=== PATIENT | female | born 2000 | race Caucasian/White ===

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

== ENCOUNTER 2019-08-09 19:04 | Emergency (ER) | payer OTHER ==
[~2019-08-09] VITALS: Ht 170.2 cm; Wt 72.6 kg
[~2019-08-09 19:04] MED LIST changes: +KETO10 PO; +Norco 5-325 Ta1 EACH PO; +Zofran4 MG PO
[2019-08-09] MEDS ORDERED: Robaxin-750750 MG PO (20:17)
[2019-08-09] MEDS ORDERED: IBUP800 PO (20:17)
== END 2019-08-09 20:31 | disposition home or self-care (01) ==
LOC: ER 19:04
DX: S46.912A Strain of unspecified muscle, fascia and tendon at shoulder and upper arm level, left arm, initial encounter (principal); S46.911A Strain of unspecified muscle, fascia and tendon at shoulder and upper arm level, right arm, initial encounter; M54.2 Cervicalgia; F17.210 Nicotine dependence, cigarettes, uncomplicated; V89.2XXA Person injured in unspecified motor-vehicle accident, traffic, initial encounter
CPT/HCPCS: 99283

== ENCOUNTER 2021-01-10 00:09 | Emergency (ER) | payer OTHER ==
[~2021-01-10] VITALS: Ht 170.2 cm; Wt 77.1 kg
[~2021-01-10 00:09] MED LIST changes: +Robaxin-750750 MG PO
[2021-01-10] MEDS ORDERED: ESCI10 PO (00:31)
[2021-01-10 02:06] LABS: SARS-Cov-2 (COVID-19) PCR, MMC POSITIVE (NEGATIVE)
[2021-01-10] MEDS ORDERED: ALBU90OI INH (02:17)
== END 2021-01-10 02:38 | disposition home or self-care (01) ==
LOC: ER 00:09
PROVIDERS: Emergency Medicine
DX: U07.1 COVID-19 (principal); F17.210 Nicotine dependence, cigarettes, uncomplicated; Z79.899 Other long term (current) drug therapy; Z87.442 Personal history of urinary calculi
CPT/HCPCS: 71045; 94640; 99283-25; A9270; U0004

== ENCOUNTER 2022-01-24 18:17 | Emergency (ER) | payer OTHER ==
[~2022-01-24] VITALS: Ht 170.2 cm; Wt 90.7 kg
[~2022-01-24 18:17] MED LIST changes: +ALBU90OI INH; +ESCI10 PO
[2022-01-24 19:41] LABS: Influenza A, PCR NEGATIVE (NEGATIVE); Influenza B, PCR NEGATIVE (NEGATIVE); Resp Syncytial Virus, PCR NEGATIVE (NEGATIVE)
[2022-01-24 19:51] LABS: SARS-Cov-2 (COVID-19) PCR, MMC POSITIVE (NEGATIVE)
== END 2022-01-24 20:40 | disposition home or self-care (01) ==
LOC: ER 18:17
PROVIDERS: Student in an Organized Health Care Education/Training Program
DX: U07.1 COVID-19 (principal); F17.210 Nicotine dependence, cigarettes, uncomplicated
CPT/HCPCS: 0241U

== ENCOUNTER 2022-07-20 05:06 | Inpatient (IN) | payer OTHER ==
[~2022-07-20] VITALS: Ht 170.2 cm; Wt 98.4 kg
[~2022-07-20 05:06] MED LIST changes: +PRENATAL TABLE1 EAC2
[2022-07-20 05:55] LABS: BASOPHILS ABSOLUTE AUTO 0.03 K/mm3 (0.00-0.23); BASOPHILS PERCENT AUTO 0 % (0-2); EOSINOPHILS ABSOLUTE AUTO 0.08 K/mm3 (0.00-0.68); EOSINOPHILS PERCENT AUTO 1 % (0-6); Hemoglobin 12.7 g/dL (11.5-16.0); IMMATURE GRAN ABSOLUTE AUTO 0.05 K/mm3 (0.00-0.10); IMMATURE GRAN PERCENT AUTO 1 % (0-1); LYMPHOCYTES PERCENT AUTO 19 % (21-46); MONOCYTES ABSOLUTE AUTO 0.58 K/mm3 (0.16-1.47); MONOCYTES PERCENT AUTO 6 % (4-13); Mean Corpuscular HGB 30.8 pg (26.0-34.0); Mean Corpuscular HGB Conc 33.4 g/dL (31.5-36.5); Mean Corpuscular Volume 92 fL (80-100); Mean Platelet Volume 9.4 fL (9.1-12.4); NEUTROPHILS PERCENT AUTO 73 % (41-73); Platelet Count 230 K/mm3 (150-400); RDW Coefficient Variation 13.3 % (11.7-14.2); RDW Standard Deviation 45.1 fL (35.1-46.3); Red Blood Cell Count 4.12 M/mm3 (3.80-5.20); White Blood Cell Count 9.14 K/mm3 (4.00-11.30)
--- NOTE | 2022-07-20 18:12 | NUR ---
PT HAD EPIDURAL PLACED BY DR PATEL, FIRST EPIDURAL DIDN'T RELIEVE PAIN, SECOND EPIDURAL WAS PLACED FIRST PLACEMENT TIMES 1528 LOCAL 1530 CATH PLACED 1531 TEST DOSE 1534 LOADING DOSE
[2022-07-20 19:53] LABS: PCO2 Cord - Arterial 62.8 mmHg (40-50); PO2 Cord - Arterial < 14 mmHg (16-20); pH Cord - Arterial 7.17 (7.28-7.35)
[2022-07-20 19:54] LABS: PCO2 Cord - Venous 53.2 mmHg (40-50); PO2 Cord - Venous 17.7 mmHg (28-32); pH Umbilical Cord - Venous 7.24 (7.26-7.35)
[2022-07-21 05:17] LABS: BASOPHILS ABSOLUTE AUTO 0.04 K/mm3 (0.00-0.23); BASOPHILS PERCENT AUTO 0 % (0-2); EOSINOPHILS ABSOLUTE AUTO 0.07 K/mm3 (0.00-0.68); EOSINOPHILS PERCENT AUTO 1 % (0-6); Hemoglobin 11.8 g/dL (11.5-16.0); IMMATURE GRAN ABSOLUTE AUTO 0.07 K/mm3 (0.00-0.10); IMMATURE GRAN PERCENT AUTO 1 % (0-1); LYMPHOCYTES ABSOLUTE AUTO 1.51 K/mm3 (0.84-5.20); LYMPHOCYTES PERCENT AUTO 11 % (21-46); MONOCYTES ABSOLUTE AUTO 0.98 K/mm3 (0.16-1.47); MONOCYTES PERCENT AUTO 7 % (4-13); Mean Corpuscular HGB 31.5 pg (26.0-34.0); Mean Corpuscular HGB Conc 34.7 g/dL (31.5-36.5); Mean Corpuscular Volume 91 fL (80-100); Mean Platelet Volume 9.1 fL (9.1-12.4); NEUTROPHILS ABSOLUTE AUTO 10.85 K/mm3 (1.96-9.15); NEUTROPHILS PERCENT AUTO 80 % (41-73); Platelet Count 183 K/mm3 (150-400); RDW Coefficient Variation 13.2 % (11.7-14.2); RDW Standard Deviation 43.7 fL (35.1-46.3); Red Blood Cell Count 3.75 M/mm3 (3.80-5.20); White Blood Cell Count 13.52 K/mm3 (4.00-11.30)
--- NOTE | 2022-07-21 11:52 | NUR ---
4 steri strips placed on incision as there was one spot in middle of incision that was slightly open and did not have steri strip over it. scant amt bloody drianage. otherwise intact, no pus or other drainage or smell.
[2022-07-22] MEDS ORDERED: Percocet 5-3251 EACH PO (13:52)
[2022-07-22] MEDS ORDERED: IBUP800 PO (13:52)
[2022-07-22] MEDS ORDERED: DOCU100 PO (13:53)
--- NOTE | 2022-07-22 17:40 | NUR ---
DISCHARGE TO HOME WITH NB
== END 2022-07-22 17:40 | disposition home or self-care (01) | DRG 788 ==
LOC: OBS 05:06 → BC 05:12
PROVIDERS: Obstetrics & Gynecology; ADMIT Advanced Practice Midwife
PROC: 10D00Z1 Extraction of Products of Conception, Low, Open Approach (ICD-10-PCS; principal; 2022-07-20 19:30)
DX: O34.211 Maternal care for low transverse scar from previous cesarean delivery (principal); Z37.0 Single live birth; O99.824 Streptococcus B carrier state complicating childbirth; O76 Abnormality in fetal heart rate and rhythm complicating labor and delivery; O34.03 Maternal care for unspecified congenital malformation of uterus, third trimester; Q51.810 Arcuate uterus; Z3A.39 39 weeks gestation of pregnancy; Z98.890 Other specified postprocedural states
CPT/HCPCS: 36415; 51702; 82803; 85025; 86850; 86900; 86901; 88307; A9270; J0290; J0690; J1885; J2001; J2370; J2405; J2590; J2765; J3010; J7120

== ENCOUNTER 2023-02-17 08:11 | Day surgery (SDC) | payer OTHER ==
[~2023-02-17] VITALS: Ht 170.2 cm; Wt 86.7 kg
[~2023-02-17 08:11] MED LIST changes: +DOCU100 PO
[2023-02-17] MEDS ORDERED: TERB250 PO (08:52)
[2023-02-17] MEDS ORDERED: Cetirizine HCl10 MG PO (08:52)
[2023-02-17] MEDS ORDERED: VRAYLAR3 MG PO (08:52)
--- NOTE | 2023-02-17 10:05 | NUR ---
02/17/23 [place]5 Evangelina Flores 14FR SOSA STARTED AT BEGINNING OF PROCEDURE BY MINA RN. UREINE RETURN NOTED. REMOVED AT END OF PROCEDURE, TIP INTACT.
--- NOTE | 2023-02-17 11:08 | NUR ---
02/17/23 110 DAWOOD CHAVIRA 1107, RN ADMINISTERED 25MCG OF FENTANYL IV FOR PAIN RATING 6/10 AT SURGICAL INCISION SITE.
[2023-02-17 11:55] VITALS: BP 102/59
== END 2023-02-17 12:03 | disposition home or self-care (01) ==
LOC: ORSCSDS 08:11
PROVIDERS: Obstetrics & Gynecology
PROC: 0UT74ZZ Resection of Bilateral Fallopian Tubes, Percutaneous Endoscopic Approach (ICD-10-PCS; principal; 2023-02-17 09:30)
DX: Z30.2 Encounter for sterilization (principal); N70.91 Salpingitis, unspecified; N83.8 Other noninflammatory disorders of ovary, fallopian tube and broad ligament; F17.290 Nicotine dependence, other tobacco product, uncomplicated; F41.9 Anxiety disorder, unspecified; F31.9 Bipolar disorder, unspecified; Z86.16 Personal history of COVID-19
CPT/HCPCS: 88302; A9270; J0171; J0690; J1100; J1885; J2250; J2370; J2405; J2704; J2795; J3010; J7120

== ENCOUNTER 2024-03-22 00:30 | Emergency (ER) | payer OTHER ==
[~2024-03-22] VITALS: Ht 167.6 cm; Wt 70.3 kg
[~2024-03-22 00:30] MED LIST changes: +Cetirizine HCl10 MG PO; +TERB250 PO; +VRAYLAR3 MG PO
[2024-03-22] MEDS ORDERED: NS 1,000 ML IV SCH (00:40)
[2024-03-22] MEDS ORDERED: Haloperidol Lactate Inj. 5 MG/ML Injection IM ONE (00:40)
[2024-03-22] MEDS ORDERED: SUBOXONE 8 MG-1 EACH SL (00:41)
[2024-03-22 00:51] LABS: BASOPHILS ABSOLUTE AUTO 0.05 K/mm3 (0.00-0.23); BASOPHILS PERCENT AUTO 0 % (0-2); EOSINOPHILS PERCENT AUTO 2 % (0-6); Hematocrit 43.7 % (33.0-51.0); Hemoglobin 14.5 g/dL (11.5-16.0); IMMATURE GRAN ABSOLUTE AUTO 0.04 K/mm3 (0.00-0.10); IMMATURE GRAN PERCENT AUTO 0 % (0-1); LYMPHOCYTES ABSOLUTE AUTO 2.18 K/mm3 (0.84-5.20); LYMPHOCYTES PERCENT AUTO 19 % (21-46); MONOCYTES ABSOLUTE AUTO 0.38 K/mm3 (0.16-1.47); MONOCYTES PERCENT AUTO 3 % (4-13); Mean Corpuscular HGB 30.4 pg (26.0-34.0); Mean Corpuscular HGB Conc 33.2 g/dL (31.5-36.5); Mean Corpuscular Volume 92 fL (80-100); NEUTROPHILS ABSOLUTE AUTO 8.41 K/mm3 (1.96-9.15); NEUTROPHILS PERCENT AUTO 75 % (41-73); Platelet Count 295 K/mm3 (150-400); RDW Coefficient Variation 12.1 % (11.7-14.2); RDW Standard Deviation 40.9 fL (35.1-46.3); Red Blood Cell Count 4.77 M/mm3 (3.80-5.20); White Blood Cell Count 11.26 K/mm3 (4.00-11.30)
[2024-03-22 00:53] LABS: Source, Urine Clean Catch
[2024-03-22 00:56] LABS: Appearance, Urine Hazy (Clear); Bilirubin, Urine Neg (Neg); Blood, Urine 4+ (Neg); Color, Urine Yellow (P-Yellow); Glucose Qualitative, Urine Neg (Neg); Ketones, Urine 2+ (Neg); Leukocyte Esterase, Urine 1+ (Neg); Nitrite, Urine Neg (Neg); Protein, Urine 2+ (Neg); Specific Gravity, Urine 1.025 (1.003-1.022); Urobilinogen, Urine 2+ (Normal)
[2024-03-22 01:08] LABS: Amorphous Light (0-Heavy); Bacteria Mod /hpf; Calcium Oxalate Crystals Few /hpf; Mucus Light (0-Heavy); Red Blood Cells, Urine 0-2 /hpf (0-2); Squamous Epithelial Cells Mod /hpf (Few); White Blood Cells, Urine 0-2 /hpf (0-5)
[2024-03-22 01:13] LABS: Alanine Aminotransfer (ALT/SGP 18 U/L (12-78); Albumin, Blood 4.5 g/dL (3.4-5.0); Albumin/Globulin Ratio 1.3 (0.8-1.8); Alk Phos 64 U/L (50-136); Anion Gap 9 mmol/L (3-11); Aspartate Aminotrans (AST/SGOT 18 U/L (12-37); Bilirubin, Total 0.8 mg/dL (0.1-1.0); Blood Urea Nitrogen 15 mg/dL (8-24); Bun/Creatinine Ratio 23.3 (12.0-20.0); CO2, Blood 24 mmol/L (21-32); Calcium, Blood 9.7 mg/dL (8.5-10.1); Chloride, Blood 111 mmol/L (98-108); Creatinine, Blood 0.65 mg/dL (0.40-1.00); Ethanol (Alcohol), Blood, Med <3 mg/dL; Globulin, Blood 3.4 g/dL (2.2-4.0); Glomerular Filtration Rate 126 (60-); Glucose, Blood 144 mg/dL (70-99); Potassium, Blood 3.3 mmol/L (3.5-5.5); Sodium, Blood 141 mmol/L (136-145); Total Protein, Blood 7.9 g/dL (6.4-8.2)
[2024-03-22 01:24] LABS: U Amphetamine Screen Not Detected; U Barbituate Screen Not Detected; U Benzodiazapine Screen Not Detected; U Buprenorphine Screen DETECTED; U Cannabinoids Screen DETECTED; U Cocaine Screen Not Detected; U Methadone Screen Not Detected; U Methamphetamine Screen Not Detected; U Opiates Screen Not Detected; U Oxycodone Screen Not Detected; U Phencyclidine Screen Not Detected
[2024-03-22] MEDS ORDERED: COMPAZINE10 MG PO (01:37)
[2024-03-22 01:40] VITALS: BP 102/59
[2024-03-25 14:12] LABS: 11-NOR-9-CARBOXY-THC,URN,QUANT >500 ng/mL
[2024-03-26 13:41] LABS: BUPRENORPHINE GLUC,URN,QUANT 268 ng/mL; BUPRENORPHINE,URN,QUANT 4 ng/mL; NALOXONE,URN,QUANT <100 ng/mL; NORBUPRENORPHINE GLUC,UR,QUANT >1000 ng/mL; NORBUPRENORPHINE,URN,QUANT 287 ng/mL
== END 2024-03-22 01:45 | disposition home or self-care (01) ==
LOC: ER 00:30
PROVIDERS: Emergency Medicine
DX: R11.2 Nausea with vomiting, unspecified (principal); F17.200 Nicotine dependence, unspecified, uncomplicated; Z79.899 Other long term (current) drug therapy
CPT/HCPCS: 80053; 81001; 81025; 83605; 85025; 87086; 96372; 99284-25; G0480; J1630; J7030

== ENCOUNTER → 2024-04-23 | Outpatient (CLI) | payer OTHER ==
[~2024-04-23] MED LIST changes: +COMPAZINE10 MG PO; +POTA10T PO; +SUBOXONE 8 MG-1 EACH SL
[2024-04-23 19:07] LABS: Albumin, Blood 3.8 g/dL (3.4-5.0); Albumin/Globulin Ratio 1.1 (0.8-1.8); Bilirubin, Total 0.2 mg/dL (0.1-1.0); Bun/Creatinine Ratio 21.1 (12.0-20.0); Calcium, Blood 8.2 mg/dL (8.5-10.1); Creatinine, Blood 0.57 mg/dL (0.40-1.00); Globulin, Blood 3.4 g/dL (2.2-4.0); Potassium, Blood 3.8 mmol/L (3.5-5.5); Total Protein, Blood 7.2 g/dL (6.4-8.2)
== END ==
LOC: LAB 18:51 → LAB SHORT 18:51
PROVIDERS: Physician Assistant Medical
DX: R11.2 Nausea with vomiting, unspecified (principal)
CPT/HCPCS: 80053

== ENCOUNTER → 2024-07-30 | Outpatient (CLI) | payer OTHER ==
[2024-07-30 16:49] LABS: BASOPHILS ABSOLUTE AUTO 0.03 K/mm3 (0.00-0.23); BASOPHILS PERCENT AUTO 1 % (0-2); EOSINOPHILS PERCENT AUTO 2 % (0-6); Hematocrit 38.8 % (33.0-51.0); Hemoglobin 12.6 g/dL (11.5-16.0); IMMATURE GRAN ABSOLUTE AUTO 0.01 K/mm3 (0.00-0.10); IMMATURE GRAN PERCENT AUTO 0 % (0-1); LYMPHOCYTES ABSOLUTE AUTO 1.94 K/mm3 (0.84-5.20); LYMPHOCYTES PERCENT AUTO 44 % (21-46); MONOCYTES ABSOLUTE AUTO 0.39 K/mm3 (0.16-1.47); MONOCYTES PERCENT AUTO 9 % (4-13); Mean Corpuscular HGB 30.5 pg (26.0-34.0); Mean Corpuscular HGB Conc 32.5 g/dL (31.5-36.5); Mean Corpuscular Volume 94 fL (80-100); NEUTROPHILS ABSOLUTE AUTO 1.95 K/mm3 (1.96-9.15); NEUTROPHILS PERCENT AUTO 44 % (41-73); Platelet Count 242 K/mm3 (150-400); RDW Coefficient Variation 11.8 % (11.7-14.2); RDW Standard Deviation 40.6 fL (35.1-46.3); Red Blood Cell Count 4.13 M/mm3 (3.80-5.20); White Blood Cell Count 4.42 K/mm3 (4.00-11.30)
[2024-07-30 17:07] LABS: Albumin, Blood 3.9 g/dL (3.4-5.0); Albumin/Globulin Ratio 1.2 (0.8-1.8); Bilirubin, Total 0.4 mg/dL (0.1-1.0); Bun/Creatinine Ratio 20.6 (12.0-20.0); Calcium, Blood 8.6 mg/dL (8.5-10.1); Creatinine, Blood 0.68 mg/dL (0.40-1.00); Globulin, Blood 3.3 g/dL (2.2-4.0); Magnesium, Blood 1.9 mg/dL (1.6-2.4); Potassium, Blood 3.6 mmol/L (3.5-5.5); Thyroid Stimulating Hormone 0.573 uIU/mL (0.360-4.800); Total Protein, Blood 7.2 g/dL (6.4-8.2)
== END | disposition home or self-care (01) ==
LOC: LAB 16:45 → LAB SHORT 16:45
PROVIDERS: Physician Assistant Medical
DX: R53.1 Weakness (principal); R53.83 Other fatigue
CPT/HCPCS: 80053; 83735; 84443; 85025